=== PATIENT | male | born 1985 | race Caucasian/White ===

== ENCOUNTER 2022-02-01 15:59 | Observation (INO) | payer OTHER, SELFPAY ==
--- NOTE | 2022-01-31 10:30 | RAD_ITS ---
STUDY: X-RAY CHEST REASON FOR EXAM: Male, 37 years old. PREOP TECHNIQUE: PA and lateral views of the chest. COMPARISON: None. FINDINGS: The lungs are clear and expanded. Scattered calcified granulomas. There is no demonstrated pleural abnormality. Normal size heart. Normal mediastinum and [place]. Normal visualized pulmonary arteries. Normal visualized aortic arch and descending thoracic aorta. Normal visualized thoracic spine. Normal visualized ribs, clavicles, and shoulders. There is no demonstrated abnormality of the visualized soft tissue structures of the upper abdomen. RAD/Chest PA and Lateral IMPRESSION: No acute abnormality is seen. Electronically Signed: Guy Serrato MD at 13:53 EDT ,
[2022-01-31 12:26] LABS: Absolute Lymphocyte Count 3.15 X10^3/uL (0.83-4.51); Absolute Neutrophil Count 6.5 X10^3/uL (2.0-7.7); Basophil# 0.05 X10^3/uL; Basophil% 0.4 % (0-1); Eosinophil# 0.28 X10^3/uL; Eosinophils% 2.5 % (0-5); Hematocrit 45.3 % (40-54); Hemoglobin 14.9 g/dL (13.0-16.5); Lymphocyte # 3.15 X10^3/ul (0.83-4.51); Mean Corp Hgb Conc 32.9 g/dL (32-36); Mean Corpuscular Hgb 28.4 pg (27.0-32.0); Mean Corpuscular Volume 86.3 fL (80-94); Mean Platelet Vol. 10.6 fl (6.2-12.0); Monocyte% 10.7 % (0-10); NRBC Flagged by Analyzer 0 % (0-5); Platelet Count 230 K/mm3 (150-450); RBC Distribution Width CV 13.4 % (11.6-14.6); RBC Distribution Width SD 42.5 fl (35.1-43.9); Red Blood Count 5.25 M/mm3 (4.6-6.2); White Blood Count 11.2 K/mm3 (4.4-11.0)
[2022-01-31 12:33] LABS: Prothrombin Time (Protime)PT. 13.2 SECONDS (11.7-14.9)
[2022-01-31 12:34] LABS: Partial Thromboplast Time 33.4 Seconds (24.1-36.2)
[2022-01-31 13:06] LABS: Anion Gap 5 (5-15); BUN 11 mg/dL (7-18); BUN/Creat Ratio 13.2 RATIO (10-20); Chloride 108 mmol/L (98-107); Creatinine, Serum 0.83 mg/dL (0.70-1.30); EST Glomerular Filtration Rate 109 mL/min (>60); Est Glom Filt Rate - Afr Amer 132 mL/min (>60); Glucose 69 mg/dL (74-106); Potassium 3.7 mmol/L (3.5-5.1); Sodium Level 140 mmol/L (136-145)
[2022-02-01] VITALS (11 sets, daily range): BP systolic 127–152; BP diastolic 74–101; PULSE 62–86; RESP 16–136; TEMP 36.2–37.1; O2SAT 93–99; BMI 31.4
[2022-02-01] MEDS: Lactated Ringers 1,000 ML 15 ML IV ×2 (06:53→14:14)
--- NOTE | 2022-02-01 06:55 | PN.ORTHO_ITS ---
Subjective Subjective The patient was seen and examined postoperatively in the PACU. He is lying in bed resting comfortably. He is having some postop soreness in the lower back. He denies any other complaints including numbness tingling or weakness Objective Data Objective Data Vital Signs: Vital Signs Temp Pulse Resp BP Pulse Ox 98.2 F 85 16 131/88 H 99 02/01/22 06:38 02/01/22 06:38 02/01/22 06:38 02/01/22 06:38 02/01/22 06:38 Oxygen Delivery Method Room Air Weight: 231 lb 4.238 oz Body Mass Index (BMI) 31.4 Lab / Micro Data Result Diagrams: 01/31/22 10:11 01/31/22 10:11 Labs: Laboratory Results - last 24 hr 01/31/22 10:11: Sodium 140, Potassium 3.7, Chloride 108 H, Carbon Dioxide 27.0, Anion Gap 5, BUN 11, Creatinine 0.83, Est GFR (MDRD) Af Amer 132, Est GFR (MDRD) Non-Af 109, BUN/Creatinine Ratio 13.2, Glucose 69 L, Calcium 9.0 01/31/22 10:11: PT 13.2, INR 1.0, APTT 33.4 01/31/22 10:11: WBC 11.2 H, RBC 5.25, Hgb 14.9, Hct 45.3, MCV 86.3, MCH 28.4, MCHC 32.9, RDW Std Deviation 42.5, RDW Coeff of Kimberli 13.4, Plt Count 230, MPV 10.6, Immature Gran % (Auto) 0.400, Neut % (Auto) 58.0, Lymph % (Auto) 28.0, [place] % (Auto) 10.7 H, Eos % (Auto) 2.5, Baso % (Auto) 0.4, Absolute Neuts (auto) 6.5, Absolute Lymphs (auto) 3.15, Nucleated RBC % 0 Radiography Diagnostic Testing: Radiology Impression Chest X-Ray 01/31/22 10:30 IMPRESSION: No acute abnormality is seen. Electronically Signed: Guy Serrato MD at 13:53 EDT , Physical Exam Const alert, oriented x3 and no apparent distress General Appearance: cooperative and comfortable Orientation / Consciousness: awake and oriented to person HEENT normocephalic and head/scalp atraumatic Eyes EOMs intact bilaterally and conjunctivae normal Neck full ROM General: normal visual inspection Chest inspection of chest normal and palpation of chest normal Resp normal respiratory effort and normal air movement Cardio regular rate, regular rhythm and peripheral pulses 2+ throughout GI soft to palpation, non-tender and non-distended Back/Spine Back/Spine Narrative: Dressing clean dry and intact. Drain in place and functioning with small amount of serosanguineous fluid present Cervical Spine: cervical ROM normal Thoracic Spine / Upper Back: normal to inspection Lumbar Spine / Lower Back: normal to inspection Extremity normal to inspection, full ROM, normal capillary refill, no clubbing, cyanosis or edema and no calf tenderness Skin no rashes or lesions noted General Skin Exam: no breakdown Neuro oriented x3, CN's II-XII intact bilaterally, moves all extremities, no focal motor deficits, no sensory deficits noted and deep tendon reflexes 2+ bilaterally Motor Exam: strength 5/5 throughout and muscle tone normal throughout Assessment & Plan Assessment/Plan (1) Lumbar stenosis: PLAN: Okay to admit to floor See orders Pain control and mobilization as tolerated, back brace on at all times when out of bed Keep dressing clean dry and intact. Reinforce as needed Continue antibiotics while drain in place
--- NOTE | 2022-02-01 06:55 | PCM.OPRPT ---
Problems Associated Problem List Diagnoses (1) Lumbar stenosis: Report of Operation Date of Procedure: 02/01/22 Pre-Operative Diagnosis: 1. Lumbar stenosis, L5-S1 with spondylosis 2. Lumbar degenerative disc disease, L5-S1 Post-Operative Diagnosis: 1. Lumbar stenosis, L5-S1 with spondylosis 2. Lumbar degenerative disc disease, L5-S1 Surgery/Procedure Performed:: 1. L5-S1 posterior lumbar interbody fusion 2. Insertion of intervertebral biomechanical device x1 3. Structural allograft for spinal fusion 4. L5 bilateral laminectomies, foraminotomies, facetectomies, decompression of nerve root 5. S1 bilateral laminectomies, foraminotomies, facetectomies, decompression of bilateral nerve roots 6. L5-S1 posterior lateral fusion 7. Pedicle screw fixation 8. Local autograft for spinal fusion 9. Neuro monitoring bilateral upper and bilateral lower extremities Description of Surgical Findings:: The patient is a 37-year-old male with intractable back and leg pain. Image studies confirm the above diagnoses. He has failed conservative treatment to include medication, physical therapy and injections. The patient opted for operative intervention understanding the risk to include but not limited to infection, bleeding, damage to nerves arteries and veins, possibility of spinal fluid leak, nonunion, hardware failure, continued pain, need for further surgery, deep vein thrombosis, pulmonary embolism, heart attack, risk of stroke or . The patient was identified in the preoperative holding area. There he received preoperative IV antibiotics, Ancef, and was then transferred to the operative suite. Once in the operative suite after general endotracheal anesthesia was established, the patient was positioned prone on the [facility] operating table. All bony prominences were padded accordingly. The lumbar spine was prepped and draped in a standard surgical fashion. Bear hugger's were not turned on until the drapes were placed and sealed with Ioban. A midline incision was made and taken down to the lumbodorsal fascia. The fascia was divided and subperiosteal dissection was taken down to the level of the transverse processes and sacral ala of L5 and S1. Deep retractors were placed. A bone scalpel was used to make cuts in the lamina of L5 and then a series of rongeurs and Kerrisons was used removing the spinous process and lamina at L5. Facetectomies of greater than 50% were performed as well as foraminotomies decompressing the bilateral L5 and S1 nerve roots. Given the severity of the stenosis I needed to perform wide bilateral laminectomies and near complete facetectomies in order to decompress the neural elements, thus creating instability and necessitating the fusion. I then proceeded with interbody fusion. The nerve roots and dura were identified and retracted medially and then a left annulotomy was performed with a 15 blade scalpel. An endplate elevator, curettes and pituitaries were used to remove disc material. The endplates were prepared with a rasp. An appropriate sized intervertebral peek cage device measuring 9 mm was packed with morselized cancellous allograft and then impacted into position completing the posterior lumbar interbody fusion at the L5-S1 level. I then proceeded with pedicle screw fixation. Starting points were found at the junction of the superior articular process and transverse process and sacral ala. A power bur was used for the starting points. Pedicle probes were placed bilaterally and then 6.5 x 50 mm screws were placed bilaterally at L5 and 6.5 x 45 mm screws were placed bilaterally at S1. The screws were tested with intraoperative neurophysiologic monitoring and tested within normal limits. Connecting rods were applied and secured with set screws. I then proceeded with the posterior lateral fusion. This was accomplished by decorticating the transverse process bilaterally at L5 and the sacral ala bilaterally at S1. This decorticated bone was then bridged with local autograft from the decompression as well as morselized cancellous allograft therefore completing the posterior lateral fusion at L5-S1. The incision was thoroughly irrigated. Tisseel was placed over the dura as a hemostatic agent. A deep drain was placed. The fascia was closed with #1 Vicryl, subcutaneous with 2-0 Vicryl and skin with 2-0 nylon. A sterile dressing was applied with 4 x 4's ABD and tape. Sponge instrument needle counts were correct at the end of the case. Neurophysiologic monitoring was maintained at baseline throughout the duration of the case. The patient was extubated and taken to the PACU without incident. Hue King PA-C was present during the entire duration of the case and necessary for critical parts of the case including retraction and closure. Surgeon: Jay Abrams feed preparation operator: Hue King Type of Anesthesia: General Drains: Hemovac Estimated Blood Loss (mL): 175cc Fluids Replaced: 2000cc Grafts/Implants Used: Unified spine, Talos, DBM, Vitae OS Complications None Admit VTE Documentation VTE Present on Admission: No
--- NOTE | 2022-02-01 06:56 | DS.PCM_ITS ---
Providers Date of Admission: 02/01/22 Primary Care Physician: Ashwin Sousa, NEGATIVE STRIPPER-C Reason For Visit: LUMBAR 5 SACRAL 1 POSTERIOR LUMBAR FUSION,DECOMPRE Medications at Discharge Home Medications acetaminophen [Tylenol] 650 mg PO Q6H PRN 01/22/22 hydrocodone-acetaminophen 1 tab PO Q6H 7 Days #28 tab 02/01/22 Hospital Course Operations - (L5-S1 posterior lumbar interbody fusion, decompression, posterior spinal fusion with instrumentation, use of allograft) Summary of Care Provided Minutes Spent on Discharge: 15 Hospital Course: The patient is a 37-year-old male who underwent L5-S1 posterior lumbar interbody fusion, decompression, posterior spinal fusion with instrumentation, use of allograft on 02/01/2022. He was subsequently admitted. The hospitalist was consulted for medical management. The patient progressed well. His drain was pulled on postoperative day 1. His pain was controlled and he was mobilizing well. No significant medical issues were reported. He was subsequently discharged home on 02/02/2022 to follow-up with Dr. Abrams in 3 weeks Physical Exam Narrative The patient was seen and examined postoperative day 1. He is lying in bed resting comfortably. His pain is controlled. He denies any complaints inclu ding numbness tingling or weakness. His Yung catheter is out and he has urinated. He has been out of bed and walking the halls with physical therapy and doing well. He is hoping to be discharged home today. Const alert, oriented x3 and no apparent distress General Appearance: cooperative and comfortable HEENT normocephalic and head/scalp atraumatic Eyes EOMs intact bilaterally and conjunctivae normal Neck full ROM General: normal visual inspection Chest inspection of chest normal and palpation of chest normal Resp normal respiratory effort and normal air movement Effort and Inspection: able to speak in complete sentences Cardio regular rate and peripheral pulses 2+ throughout GI soft to palpation, non-tender and non-distended Back/Spine Back/Spine Narrative: Dressing clean dry and intact. Incision well approximated with interrupted sutures in place. No tenderness erythema drainage or fluctuance. Drain removed Cervical Spine: cervical ROM normal Thoracic Spine / Upper Back: normal to inspection Lumbar Spine / Lower Back: normal to inspection Extremity normal to inspection, full ROM, normal capillary refill, no clubbing, cyanosis or edema and no calf tenderness Skin no rashes or lesions noted General Skin Exam: no breakdown Neuro oriented x3, CN's II-XII intact bilaterally, moves all extremities, no focal motor deficits, no sensory deficits noted and deep tendon reflexes 2+ bilaterally Motor Exam: strength 5/5 throughout and muscle tone normal throughout Weight / BMI Weight Weight: 231 lb 4.238 oz Body Mass Index (BMI) 31.4 ABG / Lab / Microbiology Data Result Diagrams: 01/31/22 10:11 01/31/22 10:11 Laboratory: Laboratory Results - last 24 hr 01/31/22 10:11: Sodium 140, Potassium 3.7, Chloride 108 H, Carbon Dioxide 27.0, Anion Gap 5, BUN 11, Creatinine 0.83, Est GFR (MDRD) Af Amer 132, Est GFR (MDRD) Non-Af 109, BUN/Creatinine Ratio 13.2, Glucose 69 L, Calcium 9.0 01/31/22 10:11: PT 13.2, INR 1.0, APTT 33.4 01/31/22 10:11: WBC 11.2 H, RBC 5.25, Hgb 14.9, Hct 45.3, MCV 86.3, MCH 28.4, MCHC 32.9, RDW Std Deviation 42.5, RDW Coeff of Kimberli 13.4, Plt Count 230, MPV 10.6, Immature Gran % (Auto) 0.400, Neut % (Auto) 58.0, Lymph % (Auto) 28.0, [place] % (Auto) 10.7 H, Eos % (Auto) 2.5, Baso % (Auto) 0.4, Absolute Neuts (auto) 6.5, Absolute Lymphs (auto) 3.15, Nucleated RBC % 0 Radiography Diagnostic Testing: Radiology Impression Chest X-Ray 01/31/22 10:30 IMPRESSION: No acute abnormality is seen. Electronically Signed: Guy Serrato MD at 13:53 EDT , D/C Instructions Discharge Diet: No restrictions Weight Bearing Status: Weight bearing as tolerated Lifting Restricted to (Lbs): 5 Lifting Restrictions: Back brace on at all times. No bending twisting or lifting greater than 5 Call your doctor if your incision/area has: Continuous Slow Oozing, Sudden Increased Bleeding, Increased Pain/ Swelling, Increased Redness, Foul Smelling Discharge and Swelling at the incision site Call your doctor if you observe: Fever of 101 or Higher, Coldness, Increased Pain, Numbness or Tingling, Change in Color, Inability to urinate, Inability to have a bowel movement, Using more than 1 pad per hour, Shortness of breath, Dizziness, Fainting spells, Swelling in the ankles, Chest pain, Prolonged hiccupping, Increased palpitations (irregular heartbeat), Calf discomfort and Uncontrolled pain Change Dressing in: Daily Cleanse incision/area with: Do not get Incision Wet and Keep Dressing Clean & Dry Additional Dressing/Incision Instructions: Daily dressing changes with iodine to incision, gauze and tape. [place] dressing to shower Additional Instructions: 1. During your procedure, you received sedation through your IV. Please follow these instructions for the next 24 hours: Do not drive a motor vehicle, do not drink any alcoholic beverages, and do not sign any legal documents or make personal or business decisions. A responsible adult should stay with you at least 6 hours after the procedure. 2. Keep your surgical site/incision clean and the dressing dry and intact. You may use an ice pack at the surgical site to reduce any swelling or discomfort. 3. Monitor the incision site for any signs or symptoms of infection. Watch for redness, excessive swelling or drainage, or continued pain at the incision site after 3 days. Contact your physician immediately for a fever, chills or a temperature of 101.5? F or greater. 4. Take your medication exactly as prescribed by your physician. Do not attempt to wean yourself off any of your medications even though your pain is improving. This process needs to be carefully monitored by your doctor. Take any antib iotics prescribed exactly as directed and until they are gone. 5. Avoid stretching, bending, pulling, twisting or any sudden movements. Do not bend or twist at the waist. 6. No lifting greater than 5 pounds. 7. Do not operate a motor vehicle, equipment or a power tool while taking pain medication 8. Do not have any manipulation done by a chiropractor or any other physician without first consulting with the surgeon 9. Please contact our office if you are even scheduled for a CT scan or an MRI. 10. Please call us if you have any questions, problems or concerns. Please Follow Up With: Jay Abrams DO When: 3 weeks Meaningful Use Info Meaningful Use Diagnoses (Choose all that apply): None applicable Discharge Plan Admission Admit Date/Time: 02/01/22 15:59 Attending Provider: Jay Abrams Primary Care Provider: Ashwin Sousa NP Consulting Providers: Dorina Stevenson ; Jeanie Nichols ; Jonnathan Chilel ; Aleksandr Llanes ; Kelton Apple ; Yany Malone ; Bang Rogel ; Shadi Saldana ; Alphonse Garcia ; Erick White ; Kavitha Shelby ; Chalo Dow ; Afsaneh Rivers ; Reza Lugo ; Abhay Velazco ; Loyd Bey ; Ashwin Encinas ; Kristie Amaro ; Asia Wilkerson NP ; Lalit Hung PA Discharge Orders/Prescriptions Prescriptions: New hydrocodone-acetaminophen 5-325 mg tablet 1 tab PO Q6H 7 Days Qty: 28 RF: 0 Continued acetaminophen [Tylenol] 325 mg Tablet 650 mg PO Q6H PRN (Reason: Pain) RF: 0 Discontinued ibuprofen 200 mg Tablet 400 mg PO Q6H PRN (Reason: Pain) RF: 0 Other Ambulatory Orders: COVID 19 AG RAPID (RN COLLECT) (Routine) Timeframe: [id number] Facility: [facility] - Location: Laboratory Ordered By: Dr. Kelton Crow 12 Lead EKG (Routine) Timeframe: [id number] Facility: [facility] - Location: Cardiovascular Services Ordered By: Dr. Kelton Crow Referrals / Follow Up: Jay Abrams DO [STAFF PHYSICIAN] - Ashwin Sousa NEGATIVE STRIPPER, NEGATIVE STRIPPER-C [Primary Care Provider] -
--- NOTE | 2022-02-01 07:30 | RAD_ITS ---
STUDY: X-RAY - LUMBAR SPINE REASON FOR EXAM: Male, 37 years old. L5-S1 POSTERIOR FUSION WITH INSTRUMENTS TECHNIQUE: 2 intraoperative view(s) of the lumbar spine were obtained. COMPARISON: None FINDINGS: The patient is status post laminectomy and fusion with disc space prosthesis at L5-S1 level. RAD/Lumbar Spine 2 or 3 Views IMPRESSION: Intraoperative images are provided for laminectomy and fusion at the L5-S1 level. Electronically Signed: Guy Serrato MD at 14:51 EDT ,
[2022-02-01] MEDS: Cefazolin 2 GM in 0.9% Normal Saline 100 ML IV (09:15)
[2022-02-01] MEDS: Heparin 10,000 UNITS/10 ML Vial 10000 UNITS (09:43)
[2022-02-01] MEDS: THROMBIN (RECOMBINANT) 20,000 UNIT VIAL 20000 UNIT TOPICAL (09:43)
[2022-02-01] MEDS: Bupivacaine Mpf 0.5% 30 ML VIAL (13:12)
--- NOTE | 2022-02-01 14:54 | SUR.PHASEI ---
PATIENT'S FAMILY UPDATED ON PATIENT' STATUS.
[2022-02-01] MEDS: Cefazolin 1 GM/50 ML BAG IV (17:25)
[2022-02-01] MEDS: Lactated Ringers 1,000 ML 100 ML IV (17:25)
[2022-02-01] MEDS: Ensure Surgery 237 ML LIQUID PO (17:26)
--- NOTE | 2022-02-01 19:47 | PN.HOSP_ITS ---
Subjective Subjective Patient was seen in exam at the request of orthopedic surgery today, he underwent an L5-S1 posterior lumbar interbody fusion with insertion of biomechanical device and structural allograft. Patient has a history of lumbar stenosis with L5-S1 spondylosis. Patient also has a history of lumbar degenerative disc disease. Patient denies any history of hypertension, chronic obstructive pulmonary disease, hyperlipidemia, or atherosclerotic heart disease. At the present time, patient states that his legs feel numb but otherwise he has no complaints at this examiner. Patient has no complaints of any shortness of breath or chest discomfort. Objective Data Objective Data Vital Signs: Vital Signs Temp Pulse Resp BP Pulse Ox 98.7 F 86 16 133/101 H 98 02/01/22 17:26 02/01/22 17:26 02/01/22 17:26 02/01/22 17:26 02/01/22 17:26 Oxygen Delivery Method Room Air Weight: 104.9 kg Body Mass Index (BMI) 31.4 Intake & Output: Intake and Output for Last 24 Hours 01/30/22 01/31/22 02/01/22 23:59 23:59 23:59 Intake Total 3360 / 3360 Output Total 1070 / 1070 Balance 2290 / 2290 Lab / Micro Data Result Diagrams: 01/31/22 10:11 01/31/22 10:11 Radiography Diagnostic Testing: Radiology Impression Lumbar Spine X-Ray 02/01/22 07:30 IMPRESSION: Intraoperative images are provided for laminectomy and fusion at the L5-S1 level. Electronically Signed: Guy Serrato MD at 14:51 EDT , Physical Exam Const alert, oriented x3, no apparent distress, average body habitus and healthy denny earing General Appearance: cooperative, well kempt and well developed Orientation / Consciousness: awake, oriented to person, oriented to place and oriented to time HEENT normocephalic, head/scalp atraumatic and moist oral mucous membranes Head and Scalp: normocephalic Eyes PERRL, EOMs intact bilaterally and conjunctivae normal Neck nuchal rigidity, supple, no JVD and thyroid normal General: trachea midline Resp normal respiratory effort, no retractions, no use of accessory muscles and clear to auscultation bilaterally Auscultation: Negative for rales, rhonchi or wheezes Cardio regular rate, regular rhythm, S1 normal heart sound, S2 normal heart sound, no murmurs, no rub and no gallops GI normal to inspection, nondistended, normoactive bowel sounds, soft to palpation, non-tender and non-distended Extremity no clubbing, cyanosis or edema Skin General Skin Exam: no breakdown Neuro oriented x3 and CN's II-XII intact bilaterally Sensorium / Orientation: awake and alert Speech: speech normal Psych affect normal Assessment & Plan Assessment/Plan (1) Lumbar stenosis: PLAN: 1. Degenerative disc disease lumbar spine/osteoarthritis-patient appears medically stable at this time, I have reviewed his medications and will make appropriate adjustments if needed. #2 status post lumbar surgery for lumbar stenosis and L5-S1 spondylosis-postop day 0, patient is going to be seen by PT and OT, orthopedic surgery is participating in his care. #3 osteoarthritis of the lumbar spine-complicates care, recovery, and prognosis Charges/Coding Visit Charges Inpatient E&M: 21958 Subs Hosp L2
[2022-02-01] MEDS: Acetaminophen 325 MG Tablet 650 MG PO (19:56)
[2022-02-02] MEDS: Cefazolin 1 GM/50 ML BAG IV (01:12)
[2022-02-02] MEDS: Acetaminophen 325 MG Tablet 650 MG PO (01:18)
[2022-02-02 03:00] VITALS: BP 169/86; PULSE 72; RESP 16; TEMP 36.7; O2SAT 97
[2022-02-02] MEDS: oxyCODONE 5 MG Tablet PO ×2 (04:03→09:30)
[2022-02-02] MEDS: Lactated Ringers 1,000 ML 100 ML IV (04:17)
--- NOTE | 2022-02-02 07:32 | PCM.PN.HOSP ---
Subjective Subjective Patient is a 37-year-old gentleman with history of degenerative disc disease involving the lumbar spine who underwent underwent an L5-S1 posterior lumbar interbody fusion with insertion of biomechanical device and structural allograft. Patient has a history of lumbar stenosis with L5-S1 spondylosis followed by Dr. Abrams on 02/01/2022. The hospitalist service was consulted to assist with management of patient post operative course Objective Data Objective Data Vital Signs: Vital Signs Temp Pulse Resp BP Pulse Ox 98.1 F 72 16 169/86 H 97 02/02/22 03:00 02/02/22 03:00 02/02/22 03:00 02/02/22 03:00 02/02/22 03:00 Oxygen Delivery Method Room Air Weight: 104.9 kg Body Mass Index (BMI) 31.4 Intake & Output: Intake and Output for Last 24 Hours 01/31/22 02/01/22 02/02/22 23:59 23:59 23:59 Intake Total 3360 / 3360 1050 / 1050 Output Total 1070 / 2380 3230 / 3230 Balance 2290 / 980 -2180 / -2180 Lab / Micro Data Result Diagrams: 01/31/22 10:11 01/31/22 10:11 Radiography Diagnostic Testing: Radiology Impression Lumbar Spine X-Ray 02/01/22 07:30 IMPRESSION: Intraoperative images are provided for laminectomy and fusion at the L5-S1 level. Electronically Signed: Guy Serrato MD at 14:51 EDT , Physical Exam Narrative GENERAL: cooperative HEENT: Atraumatic; EYES; Anicteric, Normal Conjunctiva NECK; supple, normal thyroid, RESPIRATORY: Diminished to auscultation CARDIOVASCULAR: Regular S1 S2, GI: soft, normoactive bowel sounds, : No Renal angle tenderness; EXTREMITIES: No edema, no clubbing, MUSCULOSKELETAL: no muscle wasting NEURO: Awake; no lateralizing signs. SKIN: No Rash PSYCH; Flat affect Assessment & Plan Assessment/Plan (1) Lumbar stenosis: PLAN: Patient is a 37-year-old gentleman with history of degenerative disc disease involving the lumbar spine who underwent underwent an L5-S1 posterior lumbar interbody fusion with insertion of biomechanical device and structural allograft. Patient has a history of lumbar stenosis with L5-S1 spondylosis followed by Dr. Abrams on 02/01/2022. The hospitalist service was consulted to assist with management of patient post operative course 1. Degenerative disc disease involving the lumbar spine ? Status post L5-S1 posterior lumbar interbody fusion with insertion of biomechanical device and structural allograft. Patient has a history of lumbar stenosis with L5-S1 spondylosis followed by Dr. Abrams on 02/01/2022 2. Class I obesity with BMI of 31.4 ? Weight loss advised 3. Tobacco dependence - Counseled on cessation, offered nicotine patch for tobacco cravings 4. DVT prophylaxis ? Will defer to primary service Charges/Coding Visit Charges Inpatient E&M: 47028 Subs Hosp L2
[2022-02-02 08:47] VITALS: BP 158/87; PULSE 74; RESP 16; TEMP 36.5; O2SAT 100
[2022-02-02] MEDS: amLODIPine 5 MG Tablet PO (09:30)
--- NOTE | 2022-02-02 09:49 | CASEMGMT ---
PAVEL NAGEL Assessment: Face to Face with pt for initial transition planning/care coordination assessment. RN ROBE introduced self and role at [facility], pt voices understanding and consents to assessment. Pt is A/O x4 and answers all questions appropriately at this time. Pt sitting up in chair in no distress with at bedside. Care providers, pharmacy, and demographics verified/updated. Admitting Dx: lumbar 5 sacral 1 post lumbar fusion, decompression PCP:Ashwin Sousa NP Specialists: Aliza, spine OR Preferred Pharmacy: [facility] Retail Insurance: [employer], [employer] Prescription Benefit: yes LW/HPOA: Pt denies having a LW/DPOA and denies need for info regarding AD. LNOK: Sarah Maynard, Living Arrangements: Pt lives with and 2 children in a two story house with 3 steps to enter without a rail. Pt reports he was I in ADL's and denies concerns at home. Transportation: Pt drives self and denies concerns with transportation. Pt able to assist until pt can drive again. DME/HHC/SNF: Pt has a FWW that he is borrowing. He also has a BSC. He has been up ambulating in the halls. Pt denies hx of HHC or SNF stays. Pt states no concerns with going home at time of dc. Pt states no further concerns/needs. CM to follow. Advised pt to ask CM if any further question/concerns/needs arise, voices understanding. Pt Goal: Home Plan: Home
[2022-02-02 10:44] VITALS: BP 165/83; PULSE 70; RESP 16; TEMP 36.5; O2SAT 97
== END 2022-02-02 11:02 | disposition home or self-care (01) ==
LOC: MS3 17:11
PROVIDERS: Admitting Provider Orthopaedic Surgery; PCP Nurse Practitioner Primary Care; Referring Provider Orthopaedic Surgery; Visit Provider Orthopaedic Surgery
PROC: 0SG00AJ Fusion of Lumbar Vertebral Joint with Interbody Fusion Device, Posterior Approach, Anterior Column, Open Approach (ICD-10-PCS; CPT 22630; principal; 2022-02-01 07:00)
DX: M48.061 Spinal stenosis, lumbar region without neurogenic claudication (principal); J44.9 Chronic obstructive pulmonary disease, unspecified; M51.37 Other intervertebral disc degeneration, lumbosacral region; M47.817 Spondylosis without myelopathy or radiculopathy, lumbosacral region; F17.210 Nicotine dependence, cigarettes, uncomplicated; E78.5 Hyperlipidemia, unspecified; I10 Essential (primary) hypertension; I25.10 Atherosclerotic heart disease of native coronary artery without angina pectoris; E66.9 Obesity, unspecified; Z68.31 Body mass index [BMI] 31.0-31.9, adult
CPT/HCPCS: 22633; 63052; 63053; 20931; 22853; 22842; 00670; 36415; 71046; 72100; 76000; 80048; 85025; 85610; 85730; 96361; 96365; 96366; 97162; 97530; 99218; 99251; 99406; C1713; J7120; G0378; G0463; J2405